=== PATIENT | female | born 1965 | race Caucasian/White ===

== ENCOUNTER 2021-03-14 07:37 | Day surgery (SDC) | payer OTHER ==
[2021-03-14] MEDS ORDERED: Depo-Medrol 40 MG/ML IM ONE (07:38)
[2021-03-14] MEDS ORDERED: Sodium Chloride 0.9(Preservative Free) 10 ML IJ ONE (07:38)
[2021-03-14] MEDS ORDERED: DIPRIVAN 200 MG/20 ML IV ONE (08:43)
--- NOTE | 2021-03-14 10:08 | XRAY ---
Indication: Left L4-S1 transforaminal INÉS. Intraoperative fluoroscopy provided for 28 seconds. 3 digital spot images submitted for interpretation demonstrates posterior needle tips projecting over the expected left L4 and L5 nerve roots. Small amount of contrast injected for needle tip placement. Correlate with intraoperative findings/report.
--- NOTE | 2021-03-14 10:11 | XRAY ---
28 seconds fluoroscopy time in surgery for left L4-S1 transforaminal INÉS.
[2021-03-14] MEDS ORDERED: Lactated Ringers 1,000 ML IV ONE (11:40)
== END 2021-03-14 09:10 | disposition home or self-care (01) ==
LOC: SDC-PAIN 07:37
PROVIDERS: ATTEND Psychiatry & Neurology Pain Medicine
DX: M54.16 Radiculopathy, lumbar region (principal); E11.9 Type 2 diabetes mellitus without complications; Z79.899 Other long term (current) drug therapy
CPT/HCPCS: 64483; 64484; 72100; 77003; 82947; J1030; J2704; Q9966